=== PATIENT | female | born 1945 | race Caucasian/White ===

== ENCOUNTER → 2017-03-27 | Outpatient (CLI) | payer OTHER, MEDICARE | END | disposition home or self-care (01) | LOC: CIMAGING 17:41 | DX: R91.8 Other nonspecific abnormal finding of lung field (principal) | CPT/HCPCS: 71020-PO ==

== ENCOUNTER 2018-04-12 05:39 | Observation (INO) | payer OTHER, MEDICARE ==
[2018-04-12] MEDS ORDERED: LR 1,000 ML IV ONE (06:06)
--- NOTE | 2018-04-12 06:41 | PDHPUP ---
History & Physical Update H&P update statement: This history and physical update is based on an assessment of the patient which was completed after admission or registration (within 24 hours), but prior to the surgery/procedure. H&P update: H&P reviewed & patient examined, no change in patient's condition since H&P completed
[2018-04-12] MEDS ORDERED: EPINEPHrine 1 MG/ML INJ ONE (06:52)
[2018-04-12] MEDS ORDERED: THROMBIN (BOVINE) 5,000 UNIT VIAL TP ONE (06:52)
[2018-04-12] MEDS ORDERED: BUPIVACAINE 0.25% 30 ML SDV ONE (06:52)
[2018-04-12] MEDS ORDERED: CHLORHEXIDINE GLUC HIBICLENS 118 ML BTL TP ONE (06:52)
[2018-04-12] MEDS ORDERED: BACITRACIN 50,000 UNITS/10 ML SYR IRR ONE (06:53)
[2018-04-12] MEDS ORDERED: MIDAZOLAM 2 MG/2 ML VIAL IVP ONE (07:06)
--- NOTE | 2018-04-12 07:08 | PDANEPAE ---
ANE History of Present Illness DJD s/f ACDF ANE Past Medical History - Cardiovascular History Hx Hypertension: No Hx Arrhythmias: No Hx Chest Pain: No Hx Coronary Artery / Peripheral Vascular Disease: No Hx CHF / Valvular Disease: No Hx Palpitations: No - Pulmonary History Hx COPD: No Hx Asthma/Reactive Airway Disease: Yes Hx Recent Upper Respiratory Infection: No Hx Oxygen in Use at Home: No Hx Sleep Apnea: No Pulmonary History Comment: hx of bronchitis - Neurologic History Hx Cerebrovascular Accident: No Hx Seizures: No Hx Dementia: No Neurologic History Comment: syncope episode - Endocrine History Hx Diabetes: No Endocrine History Comment: hypoglycemia - Renal History Hx Renal Disorders: No - Liver History Hx Hepatic Disorders: No - Neurological & Psychiatric Hx Hx Neurological and Psychiatric Disorders: No - Cancer History Hx Cancer: Yes Cancer History Comment: basal cell skin cancer - Congenital Disorder History Hx Congenital Disorders: No - GI History Hx Gastrointestinal Disorders: No - Surgical History Prior Surgeries: 3 c-sections, tubal ligation, broken nose, ANE Review of Systems Review of Systems: - Exercise capacity METS (RN): 5 METS ANE Patient History - Allergies Allergies/Adverse Reactions: terbinafine [From Lamisil] Allergy (Verified 04/09/18 15:21) Hives - Home Medications Home medications: home medication list seen and reviewed Home Medications: Ascorbic Acid [Vitamin C 500 mg (*)] 500 mg PO Q3D 04/09/18 [Last Taken Unknown] Bimatoprost 0.01% [Lumigan 0.01% (*)] 1 drops LEFTEYE HS 04/09/18 [Last Taken Unknown] Cholecalciferol (Vitamin D3) [Vitamin D3] 5,000 unit PO Q2D 04/09/18 [Last Taken Unknown] Escitalopram Oxalate [Lexapro] 5 mg PO HS 04/09/18 [Last Taken Unknown] Estradiol [Vivelle-Dot 0.1MG (*)] 0.05 mg TD SUTH@0800 04/09/18 [Last Taken Unknown] Herbals/Supplements -Info Only 1 ea PO DAILY 04/09/18 [Last Taken Unknown] Levothyroxine [Synthroid 100 mcg (*)] 100 mcg PO DAILY06 04/09/18 [Last Taken Unknown] Progesterone,Micronized [Prometrium 100mg (RX)] 100 mg PO HS 04/09/18 [Last Taken Unknown] traZODone [traZODONE 50MG (*)] 50 mg PO HS PRN 04/09/18 [Last Taken Unknown] - NPO status NPO Status: no food or drink >8 hours NPO Since - Liquids (Date): 04/11/18 NPO Since - Liquids (Time): 23:59 NPO Since - Solids (Date): 04/11/18 NPO Since - Solids (Time): 23:59 - Anes Hx Anes Hx: no prior problems - Smoking Hx Smoking Status: Never smoked - Alcohol Use Alcohol Use: Rarely - Family Anes Hx Family Anes Hx: none Family Hx Anesthesia Complications: no ANE Labs/Vital Signs - Vital Signs Blood Pressure: 142/73 Heart Rate: 52 Respiratory Rate: 14 O2 Sat (%): 94 Height: 154.94 cm Weight: 56.245 kg ANE Physical Exam - Airway Neck exam: FROM Mallampati Score: Class 2 Mouth exam: normal dental/mouth exam - Pulmonary Pulmonary: no respiratory distress - Cardiovascular Cardiovascular: regular rate and rhythym - ASA Status ASA Status: II ANE Anesthesia Plan Anesthesia Plan: general endotracheal anesthesia
[2018-04-12] MEDS ORDERED: ACETAMINOPHEN 500 MG TAB PO ONE (07:09)
[2018-04-12] MEDS ORDERED: ceFAZolin 2 GM/SWFI 2 GM/20 ML SYR IVP ONE (07:09)
[2018-04-12] MEDS ORDERED: GABAPENTIN 300 MG CAP PO ONE (07:09)
[2018-04-12] MEDS ORDERED: ceFAZolin 2 GM/SWFI 20 ML SYR IVP ONE (07:13)
[2018-04-12] MEDS ORDERED: ONDANSETRON 4 MG/2 ML VIAL ONE (07:20)
[2018-04-12] MEDS ORDERED: REMIFENTANIL HCL 1 MG VIAL ONE (07:20)
[2018-04-12] MEDS ORDERED: DEXAMETHASONE 4 MG/ML VIAL ONE ×2 (07:20→07:21)
[2018-04-12] MEDS ORDERED: fentaNYL 100 MCG/2 ML INJ ONE (07:20)
[2018-04-12] MEDS ORDERED: PROPOFOL/EMULSION 500 MG/50 ML BOTTLE IV ONE (07:20)
[2018-04-12] MEDS ORDERED: LIDOCAINE 2% 100 MG/5 ML SYR ONE (07:21)
[2018-04-12] MEDS ORDERED: LIDOCAINE HCL 160 MG/4 ML LTA KIT TP ONE (07:21)
[2018-04-12] MEDS ORDERED: ALBUTEROL 3 ML DEYVIAL IH PRN (08:53)
[2018-04-12] MEDS ORDERED: PHENYLEPHRINE HCL 100 MCG/ML SYR IVP PRN (08:53)
[2018-04-12] MEDS ORDERED: oxyCODONE IR 5 MG TAB PO PRN (08:53)
[2018-04-12] MEDS ORDERED: MEPERIDINE 25 MG/0.5 ML AMP IVP PRN (08:53)
[2018-04-12] MEDS ORDERED: PROMETHAZINE HCL 25 MG/ML INJ IVP PRN (08:53)
[2018-04-12] MEDS ORDERED: METOCLOPRAMIDE 10 MG/2 ML VIAL IVP PRN (08:53)
[2018-04-12] MEDS ORDERED: ACETAMINOPHEN 500 MG TAB PO PRN (08:53)
[2018-04-12] MEDS ORDERED: ONDANSETRON 4 MG/2 ML VIAL IVP PRN ×2 (08:53→09:02)
[2018-04-12] MEDS ORDERED: NALOXONE HCL 0.4 MG/ML INJ IVP PRN (08:53)
[2018-04-12] MEDS ORDERED: HYDROCODONE/APAP 5/325 TAB PO PRN (08:53)
[2018-04-12] MEDS ORDERED: LR 500 ML IV PRN (08:53)
[2018-04-12] MEDS ORDERED: DEXAMETHASONE 4 MG/ML VIAL IVP PRN (08:53)
[2018-04-12] MEDS ORDERED: fentaNYL 100 MCG/2 ML INJ IVP PRN (08:53)
[2018-04-12] MEDS ORDERED: LABETALOL HCL 5 MG/ML 20 ML MDV IVP PRN (08:53)
[2018-04-12] MEDS ORDERED: traZODone 50 MG TAB PO PRN (09:02)
[2018-04-12] MEDS ORDERED: BISACODYL 10 MG SUPP PR PRN (09:02)
[2018-04-12] MEDS ORDERED: LACTULOSE 20 GM/30 ML UDCUP PO PRN (09:02)
[2018-04-12] MEDS ORDERED: ONDANSETRON DISINTEGRATING 4 MG TAB PO PRN (09:02)
[2018-04-12] MEDS ORDERED: diphenhydrAMINE 25 MG CAP PO PRN (09:02)
[2018-04-12] MEDS ORDERED: MAGNESIUM HYDROXIDE 30 ML UDCUP PO PRN (09:02)
--- NOTE | 2018-04-12 09:08 | SOAPPROG ---
SOAP Progress Note Assessment/Plan: Assessment: 72 yo F sp C4/5 ACDF Plan: stable to 3N Hard collar lovenox starts POD #3 please call with neuro changes 04/12/18 09:07 Subjective: + neck pain, no arm pain. Objective: Vital Signs Temp Pulse Resp BP Pulse Ox 36.6 C 52 L 14 142/73 H 94 04/12/18 06:46 04/12/18 07:08 04/12/18 07:08 04/12/18 07:08 04/12/18 07:08 somnolent PERRL, EOMI LAURA x 4 + light touch ICD10 Worksheet Patient Problems: Problems Problem Status Onset Fusion of spine of cervical region Acute - ICD10 Problem Qualifiers (1) Fusion of spine of cervical region
[2018-04-12] MEDS ORDERED: NS W/ 20 KCl/L 1,000 ML IV SCH (09:15)
--- NOTE | 2018-04-12 09:46 | GOP ---
[f rep st] OPERATIVE REPORT DATE OF OPERATION: 04/12/2018 SURGEON: Hemant Grove MD NEUROSURGEON: Hemant Grove MD. CARTOGRAPHY TEACHER: LUIS Crowder. ANESTHESIA: General endotracheal. PREOPERATIVE DIAGNOSIS: C4-5 severe degenerative joint disease and disk herniation/osteophytes causi ng central canal and neural foraminal stenosis. Progressive cervical spondylitic myelopathy. Intrac table neck pain and upper extremity radiculopathy. Failed conservative care. POSTOPERATIVE DIAGNOSIS: C4-5 severe degenerative joint disease and disk herniation/osteophytes caus ing central canal and neural foraminal stenosis. Progressive cervical spondylitic myelopathy. Intra ctable neck pain and upper extremity radiculopathy. Failed conservative care. PROCEDURE PERFORMED: Mini open exposure for complete C4-5 anterior cervical diskectomy and fusion wi th an 11 mm structural PEEK interbody spacer, local autograft, and demineralized bone matrix. Placem ent of a 23 mm LnK CastleLoc-P anterior cervical plate with self-drilling screws. Use of intraoperat alvin microscopy and fluoroscopy. FINDINGS: ESTIMATED BLOOD LOSS: 40 cc. INDICATIONS: The patient is a 72-year-old woman with intractable neck pain and upper extremity radic ular symptoms secondary to severe degenerative joint disease and disk herniation/osteophytes causing central canal stenosis and neural foraminal impingement with progressive cervical spondylitic myelopa thy. She presents now for surgical decompression and stabilization. DESCRIPTION OF PROCEDURE: After informed consent was obtained, the patient was taken to the operatin g room and placed in the supine position with the head in the halter retractor system. The anterior cervical region was prepped and draped in sterile fashion. After fluoroscopic localization of the co rrect levels, the subcutaneous and intramuscular tissues were infiltrated with local anesthesia. A h orizontal incision was created at the level of the C4-5 interspace. This was carried through the joey tysma using monopolar electrocautery and carried in the avascular plane between the sternocleidomasto id and carotid sheath laterally and the strap muscles, trachea, and esophagus medially down to the pr evertebral fascia, which was carefully incised with Metzenbaum scissors. The C4-5 interspace was marcella ntified and re-verified using intraoperative fluoroscopy. The osteophytes were carefully removed and harvested for local autograft. The Caret distraction pins were inserted and a slight amount of dis traction created across the interspace. A complete diskectomy was then performed with the 15-blade s calpel, the straight and angled curettes, and the Powerset drill system with a massive fluted bur. Th e posterior longitudinal ligament was carefully removed, and bilateral foraminotomies were performed. There was significant dilatation of the epidural veins, which bled somewhat, and this was controlle d with Gelfoam soaked in thrombin, which was then removed. Following an excellent decompression of t he central canal and bilateral neural foramen, the wound and disk space were copiously irrigated with antibiotic irrigation, and meticulous hemostasis was achieved. The remaining endplates were careful ly prepared, and an appropriately sized 11 mm structural PEEK interbody spacer packed with local auto graft in the center was placed under fluoroscopic image guidance. The distraction was removed. An a ppropriately sized 23 mm LnK CastleLoc-P anterior cervical plate was then placed and secured with javier f-drilling screws. After biplanar fluoroscopy verified good position of the plate screws and interbo dy spacer, the locking mechanisms were engaged. A drain was placed. The subcutaneous and intramuscu lar tissues were re-infiltrated with local anesthesia, and the wound was closed in a layered fashion using interrupted Vicryl sutures followed by Steri-Strips on the skin. COMPLICATIONS: None. DISPOSITION: The patient is currently in the process of being repositioned for extubation. /[id number]/MODL
[2018-04-12] MEDS ORDERED: HYDROCODONE/APAP 5/325 TAB ONE (10:01)
--- NOTE | 2018-04-12 10:17 | POSTOPPROG ---
Post Op Note Date of Operation: 04/12/18 Surgeon: Hemant Groev [employer] Scheduler: dl Anesthesiologist: Frank Anesthesia: GET(General Endotracheal) Pre-op Diagnosis: 4/5 stenosis Post-op Diagnosis: C4/5 acdf Indication: neck pain Procedure: C4/5 acdf Findings: djd Inf/Abcess present in the surg proc area at time of surgery?: No EBL: Minimal Drains: Puma Brown
[2018-04-12] MEDS ORDERED: DIAZEPAM 5 MG/ML 1 ML SYR ONE (10:18)
[2018-04-12] MEDS ORDERED: DIAZEPAM 5 MG/ML 1 ML SYR IVP ONE (10:45)
[2018-04-12] MEDS ORDERED: NS 1,000 ML IV SCH (12:30)
[2018-04-12] MEDS ORDERED: DIAZEPAM 5 MG TAB PO PRN (13:02)
[2018-04-12] MEDS ORDERED: ceFAZolin 2 GM/DEXTROSE 100 ML IV SCH (14:00)
--- NOTE | 2018-04-12 14:39 | POSTANESTH ---
Post Anesthetic Evaluation Cardiovascular Status: Normal, Stable Respiratory Status: Tx Decrease in SpO2 (small amount O2 by NC) Level of Consciousness/Mental Status: Can Participate in Eval Pain Control: Adequate, Prn Tx Ordered Nausea/Vomiting Control: Adequate, Prn Tx Ordered Complications Possibly Related to Anesthesia: None Noted
[2018-04-12] MEDS: ACETAMINOPHEN 500 MG TAB PO SCH ×2 (15:41→22:48)
[2018-04-12] MEDS: POLYETHYLENE GLYCOL 3350 17 GM PKT PO SCH ×2 (15:42→22:27)
[2018-04-12] MEDS: GABAPENTIN 300 MG CAP PO SCH ×2 (15:42→21:10)
[2018-04-12] MEDS: ceFAZolin 2 GM in NS 100 ML IV SCH ×2 (16:39→23:28)
[2018-04-12] MEDS: METHOCARBAMOL 750 MG TAB PO PRN (16:39)
[2018-04-12] MEDS: oxyCODONE IR 5 MG TAB PO PRN (18:17)
[2018-04-12] MEDS ORDERED: NON-FORMULARY NEW DRUG (Escitalopram Oxalate [Lexapro] 5 MG) PO SCH (21:00)
[2018-04-12] MEDS ORDERED: BIMATOPROST 0.01% 2.5 ML OPHT.BTL LEFTEYE SCH (21:00)
[2018-04-12] MEDS ORDERED: PROGESTERONE,MICR 100 MG CAP PO SCH (21:00)
[2018-04-12] MEDS ORDERED: ESCITALOPRAM OXALATE 10 MG TAB PO SCH (21:00)
[2018-04-12] MEDS: FAMOTIDINE 20 MG TAB PO SCH (21:11)
[2018-04-12] MEDS: SENNOSIDES/DOCUSATE SODIUM TAB PO SCH (21:29)
[2018-04-13] MEDS: oxyCODONE IR 5 MG TAB PO PRN ×3 (03:27→14:01)
[2018-04-13] MEDS: METHOCARBAMOL 750 MG TAB PO PRN ×2 (03:28→09:03)
[2018-04-13 05:09] LABS: PLATELET COUNT 177 10^3/uL (150-400)
[2018-04-13] MEDS ORDERED: LEVOTHYROXINE 100 MCG TAB PO SCH (06:00)
[2018-04-13] MEDS: ACETAMINOPHEN 500 MG TAB PO SCH ×2 (06:52→14:02)
[2018-04-13] MEDS: GABAPENTIN 300 MG CAP PO SCH ×2 (06:52→14:01)
--- NOTE | 2018-04-13 08:20 | NEUSURGPN ---
Assessment/Plan: A: 72 yo F s/p C45 ACDF Plan: -PT/oT/ADULT DAY CARE WORKER -Pain management - encourage fluids and caffeine for headache -urinary retention - likely related to narcotics. try and limit these. bladder scan protocol -Post op xrays pending -Continue cervical collar -DC SHARMILA drain and change dressing -SCDs, lovenox begins 04/15 if still in house. -D/w Dr Junior -Dispo: home later today if doing ok, otherwise home tomorrow if still having pain/mobility issues -Call NS with any questions Subjective: Pt resting in bed, c/o back headache and not being able to empty bladder, says head feels very heavy Objective: AAOx3 NAD VSS MAEx4 Incision dressed cdi C collar on Motor 03/31 BUE/BLE +LT JPx1 Urinary Catheter in Place: No - Physician Discussed Patient with : [facility] Neurosurgery Physical Exam - Vitals, I&O, Labs I and O 04/12/18 04/13/18 04/14/18 05:59 05:59 05:59 Intake Total 2200 500 Output Total 40 Balance 2160 500 Weight 56.245 kg Intake: Oral (ml) 300 500 IV Intake (ml) 800 IV Infused (ml) 1100 Ns 1,000 ml @ 75 mls/hr 1000 IV CONT ASHLEY Rx#: [id number] ceFAZolin 2 gm In Ns 100 100 ml @ 200 mls/hr IV Q8H ASHLEY Rx#:[id number] Output: SHARMILA Drain Output (ml) 40 Neck 40 Other: Number of Voids Toilet 1 1 Vital Signs Temp Pulse Resp BP Pulse Ox 36.7 C 61 16 122/63 H 93 04/13/18 03:16 04/13/18 03:16 04/13/18 03:16 04/13/18 03:16 04/13/18 03:16 Laboratory Results 04/13/18 04:55 04/13/18 04:55 ICD10 Worksheet Patient Problems: Problems Problem Status Onset Fusion of spine of cervical region Acute
[2018-04-13] MEDS: SENNOSIDES/DOCUSATE SODIUM TAB PO SCH (09:03)
[2018-04-13] MEDS: POLYETHYLENE GLYCOL 3350 17 GM PKT PO SCH (09:04)
[2018-04-13] MEDS: FAMOTIDINE 20 MG TAB PO SCH (09:18)
--- NOTE | 2018-04-13 09:45 | ASMTCMCOM ---
CM Note CM Note Notes: 04/13/2018 Case Management Note Reviewed chart. Pt was admitted for an anterior C4/5 cervical spinal fusion. Pt is recommending outpatient rehab. D/C is tentatlively planned for this afternoon if pain is undercontrol or possibly tomorrow. Pt has family support upon d/c. Case Management d/c poc: home with outpatient rehab as directed. Case Management available if needs change. Date Signed: 04/13/2018 09:44 AM Electronically Signed By:Edita Vergara RN
[2018-04-13 12:30] VITALS: BP 126/62
[2018-04-15] MEDS ORDERED: ESTRADIOL VIVELLE 0.1 MG PATCH TD SCH (08:00)
[2018-04-15] MEDS ORDERED: ENOXAPARIN 40 MG/0.4 ML SYR SC SCH (09:00)
== END 2018-04-13 16:25 | disposition home or self-care (01) ==
LOC: F3N 05:39 → EDSTATUS 07:15 → F3N 12:26
PROVIDERS: ADMIT Neurological Surgery; ATTEND Neurological Surgery
DX: M48.02 Spinal stenosis, cervical region (principal); M50.021 Cervical disc disorder at C4-C5 level with myelopathy; Z85.828 Personal history of other malignant neoplasm of skin
CPT/HCPCS: 22551; 72040; 76001; 97161; 97166; 97535; C1713; G8978; G8979; G8980; G8987; G8988; G8989; J0171; J0690; J1100; J2001; J2250; J2270; J2405; J2704; J3010; J3360; J2370